=== PATIENT | male | born 1965 | race Caucasian/White ===

== ENCOUNTER 2018-10-04 04:12 | Emergency (ER) | payer OTHER ==
[~2018-10-04] VITALS: Ht 177.8 cm; Wt 119.0 kg
[2018-10-04 04:15] VITALS: Ht 177.8 cm; Wt 119.0 kg
[2018-10-04] MEDS ORDERED: LIDOCAINE/MYLANTA 40 ML BTL PO ONE (05:30)
[2018-10-04] MEDS ORDERED: FAMOTIDINE 20 MG TAB PO ONE (05:30)
--- NOTE | 2018-10-04 05:33 | ERD ---
ER Documentation Chief Complaint Chief Complaint c/o abd pain and epigastric pain since 7pm last night. +vomiting HPI This is a 53-year-old male who presents for evaluation of abdominal pain, described as epigastric, he had one episode of vomiting, he denies chest pain or shortness of breath, he has no prior abdominal surgeries, he is still passing gas. He has not had fever, there are no alleviating or aggravating factors. ROS All systems reviewed and are negative except as per history of present illness. Medications Home Meds Active Scripts Ondansetron Hcl* (Zofran*) 8 Mg Tab, 8 MG PO Q6H PRN for NAUSEA AND OR VOMITING, #10 TAB Prov:PACO MUÑIZ MD 10/04/18 Allergies Allergies: Coded Allergies: No Known Drug Allergy (Verified Allergy, Unknown, 10/04/18) PMhx/Soc Medical and Surgical Hx: pt denies Surgical Hx History of Surgery: No Anesthesia Reaction: No Hx Neurological Disorder: No Hx Respiratory Disorders: No Hx Cardiac Disorders: Yes (HTN) Hx Psychiatric Problems: No Hx Miscellaneous Medical Probl: Yes (GERD) Hx Alcohol Use: Yes Hx Substance Use: Yes Hx Tobacco Use: Yes Smoking Status: Never smoker Physical Exam Vitals Vital Signs Date Temp Pulse Resp B/P (MAP) Pulse Ox O2 O2 Flow FiO2 Time Delivery Rate 10/04/18 98.7 74 18 180/84 98 04:15 (116) Physical Exam Const: No acute distress Head: Atraumatic Eyes: Normal Conjunctiva ENT: Normal External Ears, Nose and Mouth. Neck: Full range of motion. No meningismus. Resp: Clear to auscultation bilaterally Cardio: Regular rate and rhythm, no murmurs Abd: Soft, epigastric and, non distended. Normal bowel sounds Skin: No petechiae or rashes Back: No midline or flank tenderness Ext: No cyanosis, or edema Neur: Awake and alert Psych: Normal Mood and Affect Result Diagram: 10/04/1842910/04/18429 Results 24 hrs Laboratory Tests Test 10/04/18 04:30 10/04/18 05:00 White Blood Count 10.2 10^3/ul Red Blood Count 4.55 10^6/ul Hemoglobin 13.7 g/dl Hematocrit 38.2 % Mean Corpuscular Volume 84.0 fl Mean Corpuscular Hemoglobin 30.1 pg Mean Corpuscular Hemoglobin Concent 35.9 g/dl Red Cell Distribution Width 12.4 % Platelet Count 248 10^3/UL Mean Platelet Volume 9.3 fl Immature Granulocytes % 0.200 % Neutrophils % 82.3 % Lymphocytes % 11.5 % Monocytes % 5.1 % Eosinophils % 0.5 % Basophils % 0.4 % Nucleated Red Blood Cells % 0.0 /100WBC Immature Granulocytes # 0.020 10^3/ul Neutrophils # 8.4 10^3/ul Lymphocytes # 1.2 10^3/ul Monocytes # 0.5 10^3/ul Eosinophils # 0.1 10^3/ul Basophils # 0.0 10^3/ul Nucleated Red Blood Cells # 0.0 10^3/ul Prothrombin Time 12.7 Sec Prothrombin Time Ratio 1.0 INR International Normalized Ratio 0.94 Sodium Level 141 mmol/L Potassium Level 3.7 mmol/L Chloride Level 104 mmol/L Carbon Dioxide Level 31 mmol/L Anion Gap 6 Blood Urea Nitrogen 19 mg/dl Creatinine 0.89 mg/dl Est Glomerular Filtrat Rate mL/min > 60 mL/min Glucose Level 161 mg/dl Calcium Level 9.2 mg/dl Total Bilirubin mg/dl Direct Bilirubin mg/dl Indirect Bilirubin 0.7 mg/dl Aspartate Amino Transf (AST/SGOT) 332 IU/L Alanine Aminotransferase (ALT/SGPT) 266 IU/L Alkaline Phosphatase 120 IU/L Troponin I < 0.012 ng/ml Total Protein 7.5 g/dl Albumin 4.3 g/dl Globulin 3.20 g/dl Albumin/Globulin Ratio 1.34 Lipase 39 U/L Urine Color RHIANNON Urine Clarity CLEAR Urine pH 7.0 Urine Specific [place] 1.019 Urine Ketones NEGATIVE mg/dL Urine Nitrite NEGATIVE mg/dL Urine Bilirubin NEGATIVE mg/dL Urine Urobilinogen 2+ mg/dL Urine Leukocyte Esterase NEGATIVE Sonia/ul Urine Hemoglobin NEGATIVE mg/dL Urine Glucose NEGATIVE mg/dL Urine Total Protein NEGATIVE mg/dl Current Medications Medications Dose Sig/Aliza Start Time Status Last (Trade) Ordered Route PRN Stop Time Admin Dose Reason Admin 40 ml ONCE ONCE 10/04/18 DC 10/04/18 Miscellaneous PO 05:30 05:43 Medication 10/04/18 (Gi Cocktail 05:31 (2)) Famotidine 20 mg ONCE ONCE 10/04/18 DC 10/04/18 (Pepcid) PO 05:30 05:42 10/04/18 05:31 Procedures/MDM This is a 53-year-old male who presents for evaluation of abdominal pain, on exam he is well-appearing nontoxic, given his age, and ACS equivalent, and cardiac workup was ordered which was negative. CT abdomen pelvis showed no acute findings, liver lesions were noted, and I discussed with the patient, and advised him to follow-up with his PMD for an outpatient ultrasound, the patient was agreeable with this plan. His LFTs were noted to be mildly elevated, he has no history of travel, no diarrhea, I do not suspect acute hepatitis, he has no history of Tylenol ingestion at discharge patient with no acute distress and all questions were answered CBC: no e/o of systemic infection or severe anemia CMP: no e/o severe acidosis, alkalosis, renal failure, diabetic ketoacidosis, Lipase: no e/o pancreatitis PT/INR: normal coagulation Urine: no e/o acute infection or hematuria EKG: Rate/Rhythm: Sinus bradycardia cardia QRS, ST, T-waves: No changes consistent w/ acute ischemia Impression: No evidence of ischemia or arrhythmia Departure Diagnosis: Primary Impression: Abdominal pain Abdominal location: unspecified location Qualified Codes: R10.9 - Unspecified abdominal pain Additional Impression: Liver lesion Condition: Stable PACO MUÑIZ MD Oct 04, 2018 05:33
[2018-10-04] MEDS ORDERED: ZOF8 PO (05:40)
[2018-10-04 06:00] VITALS: BP 138/74; PULSE 55; RESP 18
[2018-10-04] MEDS ORDERED: LIDO20SO19 MM (06:07)
== END 2018-10-04 06:05 | disposition home or self-care (01) ==
LOC: E/R 04:12
DX: K76.9 Liver disease, unspecified (principal); I10 Essential (primary) hypertension; Z87.891 Personal history of nicotine dependence
CPT/HCPCS: 36415; 71045; 74176; 80053; 81003; 83690; 84484; 85025; 85610; 93005

== ENCOUNTER 2018-11-20 08:05 | Day surgery (SDC) | payer OTHER ==
[~2018-11-20] VITALS: Ht 177.8 cm; Wt 119.1 kg
[~2018-11-20 08:05] MED LIST: LIDO20SO19 MM; ZOF8 PO
[2018-11-20 08:48] VITALS: Ht 177.8 cm; Wt 119.1 kg
[2018-11-20] MEDS ORDERED: amlodipine (08:58)
[2018-11-20] MEDS ORDERED: losartan (08:58)
[2018-11-20 08:59] VITALS: BP 128/67; PULSE 59; RESP 18
--- NOTE | 2018-11-20 10:10 | PREAC ---
Date/Time of Note Date/Time of Note DATE: 11/20/18 TIME: 10:09 Anesthesia Eval and Record Evaluation Time Pre-Procedure Interview DATE: 11/20/18 TIME: 10:09 Age 53 Sex male NPO: 8 hrs Preoperative diagnosis screening Planned procedure colonoscopy Past Medical History Past Medical History: Includes Cardio: HTN GI: Obesity Surgery & Anesthesia Issues No known issue Meds Anticoagulation: No Beta Francisco within 24 hr: No Reason Beta Francisco not given: Pt. not on B-Francisco Active Scripts Lidocaine (Lidocaine Viscous) 100 Ml Soln, 100 ML MM Q6 for abdominal pain for 3 Days Prov:PACO MUÑIZ MD 10/04/18 Ondansetron Hcl* (Zofran*) 8 Mg Tab, 8 MG PO Q6H PRN for NAUSEA AND OR VOMITING, #10 TAB Prov:PACO MUÑIZ MD 10/04/18 Reported Medications [amlodipine] No Conflict Check 11/20/18 [losartan] No Conflict Check 11/20/18 Meds reviewed: Yes Allergies Coded Allergies: No Known Drug Allergy (Verified Allergy, Unknown, 10/04/18) Allergies Reviewed: Yes Labs/Studies Labs Reviewed: Reviewed by anesthesiologist test: N/A Pre-procedure Exam Last vitals Vital Signs Date Temp Pulse Resp B/P (MAP) Pulse Ox O2 O2 Flow FiO2 Time Delivery Rate 11/20/18 97.9 59 18 128/67 99 Room Air 08:59 (87) Airway: Adequate mouth opening, Adequate thyromental dist Mallampati: Mallampati II Teeth: Normal Lung: Normal Heart: Normal ASA Physical Status ASA physical status: 2 Emergency: None Planned Anesthetic General/MAC: Mask Planned Pain Management Parenteral pain med Pre-operative Attestations Prior to commencing anesthesia and surgery, the patient was re-evaluated, there was verification of: *The patient's identity *The results of appropriate recent lab work and preoperative vital signs *The above evaluation not changing prior to induction *Anesthetic plan, risk benefits, alternative and complications discussed with patient/family; questions answered; patient/family understands, accepts and wishes to proceed. MILAGROS DAUGHERTY MD Nov 20, 2018 10:10
[2018-11-20] MEDS ORDERED: PROPOFOL 40 ML ONE (10:11)
[2018-11-20] MEDS ORDERED: LIDOCAINE 2% (SDV) 5 ML INJ ONE (10:11)
[2018-11-20] MEDS ORDERED: ONDANSETRON 4 MG INJ IV PRN (10:30)
--- NOTE | 2018-11-20 11:05 | PAC ---
Date/Time of Note Date/Time of Note DATE: 11/20/18 TIME: 11:05 Post-Anesthesia Notes Post-Anesthesia Note Last documented vital signs Vital Signs Date Temp Pulse Resp B/P (MAP) Pulse Ox O2 O2 Flow FiO2 Time Delivery Rate 11/20/18 97.9 59 18 128/67 99 Room Air 08:59 (87) Activity: WNL Respiratory function: WNL Cardiovascular function: WNL Mental status: Baseline Pain reasonably controlled: Yes Hydration appropriate: Yes Nausea/Vomiting absent: Yes Comments Bp: 122/60 HR: 60 RR: 15 T: 98 SaO2: 100% MILAGROS DAUGHERTY MD Nov 20, 2018 11:05
== END 2018-11-20 14:38 | disposition home or self-care (01) ==
LOC: GIL 08:05
PROVIDERS: ATTEND Internal Medicine Gastroenterology
DX: Z12.11 Encounter for screening for malignant neoplasm of colon (principal); D12.5 Benign neoplasm of sigmoid colon; K64.8 Other hemorrhoids
CPT/HCPCS: 88305

== ENCOUNTER 2019-02-19 08:19 | Day surgery (SDC) | payer OTHER ==
[2019-02-19] VITALS (9 sets, daily range): BP systolic 115–157; BP diastolic 58–81; PULSE 57–66; RESP 16–25; Ht 177.8 cm; Wt 117.0 kg
[~2019-02-19] VITALS: Ht 177.8 cm; Wt 117.0 kg
[~2019-02-19 08:19] MED LIST changes: +CEFAZOLIN 2 GM/50 ML (PMX) 50 ML IVPB ONE; +SOD CHLORIDE 0.9% 1,000 ML IV SCH; +amlodipine; +losartan
[2019-02-19] MEDS ORDERED: AMLO-147 ORAL (10:32)
[2019-02-19] MEDS ORDERED: LOSA1TAB25 ORAL (10:32)
[2019-02-19] MEDS ORDERED: hydrALAzine 20 MG INJ IV PRN (12:00)
[2019-02-19] MEDS ORDERED: MEPERIDINE 25 MG INJ IV PRN (12:00)
[2019-02-19] MEDS ORDERED: HYDROmorphONE 1 MG/5 ML IV SYRINGE IV PRN ×3 (12:00)
[2019-02-19] MEDS ORDERED: OXYCODONE/ACETAMINOPHEN (5/325) TAB PO PRN ×2 (12:00)
[2019-02-19] MEDS ORDERED: ONDANSETRON 4 MG INJ IV PRN (12:00)
[2019-02-19] MEDS ORDERED: LABETALOL HCL 20MG INJ IV PRN (12:00)
--- NOTE | 2019-02-19 12:00 | PREAC ---
Date/Time of Note Date/Time of Note DATE: 02/19/19 TIME: 11:59 Anesthesia Eval and Record Evaluation Time Pre-Procedure Interview DATE: 02/19/19 TIME: 11:59 Age 53 Sex male NPO: 8 hrs Preoperative diagnosis gallstones Planned procedure lap choly Past Medical History Past Medical History: Includes Cardio: HTN GI: Obesity Surgery & Anesthesia Issues No known issue Meds Anticoagulation: No Beta Francisco within 24 hr: No Reason Beta Francisco not given: Pt. not on B-Francisco Reported Medications Amlodipine Besylate* (Amlodipine Besylate*) 10 Mg Tablet, 1 TAB ORAL DAILY 02/19/19 Losartan-Hydrochlorothiazide (Losartan-HCTZ) 100-25 Mg Tab, 1 TAB ORAL DAILY 02/19/19 Discontinued Reported Medications [amlodipine] No Conflict Check 11/20/18 [losartan] No Conflict Check 11/20/18 Discontinued Scripts Lidocaine (Lidocaine Viscous) 100 Ml Soln, 100 ML MM Q6 for abdominal pain for 3 Days Prov:PACO MUÑIZ MD 10/04/18 Ondansetron Hcl* (Zofran*) 8 Mg Tab, 8 MG PO Q6H PRN for NAUSEA AND OR VOMITING, #10 TAB Prov:PACO MUÑIZ MD 10/04/18 Current Medications Sodium Chloride 1,000 ml @ 75 mls/hr [id number] IV ; Start 02/19/19 at 06:00; Stop 02/19/19 at 18:00 Meds reviewed: Yes Allergies Coded Allergies: No Known Drug Allergy (Verified Allergy, Unknown, 02/19/19) Allergies Reviewed: Yes Labs/Studies Labs Reviewed: Reviewed by anesthesiologist test: N/A Pre-procedure Exam Last vitals Vital Signs Date Temp Pulse Resp B/P (MAP) Pulse Ox O2 O2 Flow FiO2 Time Delivery Rate 02/19/19 97.3 57 16 115/74 100 Room Air 10:52 (88) Airway: Adequate mouth opening, Adequate thyromental dist Mallampati: Mallampati IV Teeth: Normal Lung: Normal Heart: Normal ASA Physical Status ASA physical status: 2 Emergency: None Pre-operative Attestations Prior to commencing anesthesia and surgery, the patient was re-evaluated, there was verification of: *The patient's identity *The results of appropriate recent lab work and preoperative vital signs *The above evaluation not changing prior to induction *Anesthetic plan, risk benefits, alternative and complications discussed with patient/family; questions answered; patient/family understands, accepts and wishes to proceed. MOOK ALLEN DO February 19, 2019 12:00
[2019-02-19] MEDS ORDERED: LIDOCAINE 2% (SDV) 5 ML INJ ONE (12:11)
[2019-02-19] MEDS ORDERED: MIDAZOLAM 1 MG/ML 2 ML INJ ONE (12:11)
[2019-02-19] MEDS ORDERED: ROCURONIUM 50 MG INJ ONE (12:11)
[2019-02-19] MEDS ORDERED: ONDANSETRON 4 MG INJ ONE (12:12)
[2019-02-19] MEDS ORDERED: BUPIVACAINE 0.25% (MPF) 30 ML INJ ONE (12:19)
[2019-02-19] MEDS ORDERED: CEFAZOLIN 1 GM INJ ONE (12:25)
[2019-02-19] MEDS ORDERED: PHENYLephrine (100 MCG/ML) 10ML SYG ONE (12:46)
[2019-02-19] MEDS ORDERED: SUGAMMADEX SODIUM 200 MG/2 ML VIAL IV ONE (12:56)
[2019-02-19] MEDS ORDERED: EPHEDrine 25 MG/5 ML SYG ONE (13:02)
--- NOTE | 2019-02-19 13:08 | OPR ---
Date/Time of Note Date/Time of Note DATE: 02/19/19 TIME: 13:03 Operative Report Procedure Date: February 19, 2019 Preoperative Diagnosis symptomatic gallstones Postoperative Diagnosis same Operation/Procedure Performed laparoscopic cholecystectomy Surgeon see signature line Lead Sprinkler none Anesthesia Type: general Estimated Blood Loss: 10 - 50 ml's Transfusion none Specimen gallbladder with ridge of liver tissues Grafts/Implants none Complications none Pt Condition Post Procedure: stable Indications This is a 53-year-old male with symptomatic right upper quadrant pain. Imaging showed a porcelain gallbladder. He did not have any weight loss however due to its clinical relevance he he is scheduled for a laparoscopic cholecystectomy possible open. Risks alternatives benefits and personal were discussed the patient. Potential complications including but not limited to bleeding infection common bile duct injury intra-abdominal organ injury need for additional operations were discussed the patient. Patient expressed understanding and consents to the operation. Procedure Description Patient is taken to the OR and prepped and draped in usual sterile fashion. Surgical time was performed. IV antibiotics given. Infraumbilical transverse incision at the 15 blade. Dissection with cautery skin onto the fascia. The fascia was grasped with Tilly's and divided with curved Moralez scissors. 0 Vicryl stitch was placed into the fascia. Farmer trocar was introduced. Pneumoperitoneum is established. Epigastric 12 mm optical trochars placed under direct visualization. Right upper quadrant upper flank 5 mm optical trochars were placed under direct position. Upon initial inspection there is some adhesions to the gallbladder. The gallbladder also appeared soft and was not typical of a porcelain gallbladder. However there was an area of hardened tissue at the apex of the dome. The gallbladder was grasped with the fundus and retracted and lateral cephalad direction. [place] graspers were used to dissect out the cystic duct and cystic artery. The critical view was established. The cystic duct is divided with the clips proximal to distal and the divisions performed lap scopic scissors. Cystic artery was divided with the clips proximal to distal and the divisions performed laparoscopic scissors. The gallbladder was taken off the gallbladder bed. At the apex where there is hardened tissue a 1 cm rim of liver tissue was taken along with the gallbladder to allow margin of normal tissue resection. Gallbladder bed hemostasis established. The gallbladder was retrieved using Endo Catch bag. All ports were removed under direct visualization. Infraumbilical 0 Vicryl U stitch was tied down. Skin was closed and skin shasta. Therapeutic subcutaneous local anesthesia was injected at the incision site. Dry dressings were applied. Juliana CASEY February 19, 2019 13:08
--- NOTE | 2019-02-19 13:10 | PAC ---
Date/Time of Note Date/Time of Note DATE: 02/19/19 TIME: 13:10 Post-Anesthesia Notes Post-Anesthesia Note Last documented vital signs Vital Signs Date Temp Pulse Resp B/P (MAP) Pulse Ox O2 O2 Flow FiO2 Time Delivery Rate 02/19/19 98 65 22 145/90 95 nc 1310 Activity: WNL Respiratory function: WNL Cardiovascular function: WNL Mental status: Baseline Pain reasonably controlled: Yes Hydration appropriate: Yes Nausea/Vomiting absent: Yes MOOK ALLEN DO February 19, 2019 13:10
[2019-02-19] MEDS ORDERED: HYDROCODONE/APAP (5/325) TAB PO ONE (13:30)
== END 2019-02-19 15:50 | disposition home or self-care (01) ==
LOC: SDS 08:19
PROVIDERS: ATTEND Surgery
DX: K80.10 Calculus of gallbladder with chronic cholecystitis without obstruction (principal); I10 Essential (primary) hypertension; E66.9 Obesity, unspecified
CPT/HCPCS: 47562; J0690; J1170; J2250; J2370; J2405; J3010